=== PATIENT | male | born 1955 | race Two or more races ===

== ENCOUNTER 2020-11-10 08:49 | Outpatient (REF) | payer OTHER, SELFPAY ==
--- NOTE | 2020-11-10 08:55 | EMG_ITS ---
Right median and ulnar motor and sensory studies were performed. Right radial sensory study was performed. Paraspinal and many limb muscles were tested with a needle. IMPRESSION: 1. Mild right median neuropathy across carpal tunnel. 2. Mild right ulnar neuropathy across cubital tunnel. MD KENDRA Stratton/IRAM / [id number]
== END 2020-11-10 08:50 | disposition home or self-care (01) ==
LOC: HO.NEURO 08:49
PROVIDERS: PCP Internal Medicine; Visit Provider Internal Medicine
DX: R20.0 Anesthesia of skin (principal)
CPT/HCPCS: 95886; 95909